=== PATIENT | male | born 1975 | race African-American/Black ===

== ENCOUNTER 2025-03-23 22:28 | Emergency (ER) | payer MEDICAID ==
[~2025-03-23] VITALS: Ht 172.7 cm; Wt 82.0 kg
[2025-03-23 22:29] VITALS: BP 117/72; PULSE 78; RESP 18; TEMP 36.9; O2SAT 98
[2025-03-23] MEDS: KETOROLAC 15MG/ML VIAL IM ONE (23:15)
[2025-03-24] MEDS ORDERED: NAPR-1176 MT (00:51)
[2025-03-24] MEDS ORDERED: LIDO-53 TP (00:51)
== END 2025-03-24 01:04 | disposition home or self-care (01) ==
LOC: ER 22:28
DX: M25.561 Pain in right knee (principal)
CPT/HCPCS: 99283; 73562; 96372; J1885